=== PATIENT | female | born 1935 | race Caucasian/White ===

== ENCOUNTER → 2016-11-09 | Outpatient (CLI) | payer OTHER, MEDICARE | LOC: GIMAGING 10:57 | PROVIDERS: ATTEND Internal Medicine | DX: R22.40 Localized swelling, mass and lump, unspecified lower limb (principal); Z96.651 Presence of right artificial knee joint | CPT/HCPCS: 73590-PO; 93306-PO ==

== ENCOUNTER → 2016-11-15 | Outpatient (CLI) | payer OTHER, MEDICARE | LOC: BHFA 09:30 | PROVIDERS: ATTEND Internal Medicine Interventional Cardiology | DX: I48.91 Unspecified atrial fibrillation (principal) ==